=== PATIENT | female | born 1970 | race Two or more races ===

== ENCOUNTER 2018-03-13 05:10 | Day surgery (SDC) | payer OTHER ==
[2018-03-13] MEDS ORDERED: DOXYCYCLINE HY100 MG PO (08:36)
[2018-03-13] MEDS ORDERED: CODE1TAB37 PO (08:39)
== END 2018-03-13 12:25 | disposition home or self-care (01) ==
LOC: CIR.AMB 05:10
DX: N84.0 Polyp of corpus uteri (principal); D25.0 Submucous leiomyoma of uterus